=== PATIENT | male | born 1995 | race Two or more races ===

== ENCOUNTER 2022-05-02 16:46 | Emergency (ER) | payer BC ==
[2022-05-02] MEDS ORDERED: Ketorolac 60 MG/2 ML SDV IM ONE (18:13)
[2022-05-02] MEDS ORDERED: LORazepam 0.5 MG Tab PO ONE (18:38)
[2022-05-02] MEDS ORDERED: Sodium Chloride 0.9% 10 ML Syringe FLUSH PRN (19:14)
[2022-05-02] MEDS ORDERED: Sodium Chloride 0.9% 1,000 ML IV ONE (19:14)
[2022-05-02] MEDS ORDERED: LORazepam 2 MG/ML SDV IM ONE (20:54)
[2022-05-02] MEDS ORDERED: Haloperidol Lactate 5 MG/ML SDV IM ONE (22:05)
== END 2022-05-03 08:20 | disposition home or self-care (01) ==
LOC: JD.ED 16:46
DX: M25.551 Pain in right hip (principal); F19.129 Other psychoactive substance abuse with intoxication, unspecified; Z86.16 Personal history of COVID-19
CPT/HCPCS: 36415; 72100; 73502; 80053; 80143; 80179; 80306; 80307; 81001; 84443; 85025; 93005; 96360; 96372; 99284; A9270; J1630; J1885; J2060; J3490; J7030; 93010; 99283